=== PATIENT | female | born 1980 | race African-American/Black ===

== ENCOUNTER 2025-05-24 18:23 | Emergency (ER) | payer MEDICAID ==
[~2025-05-24] VITALS: Ht 167.6 cm; Wt 82.0 kg
[2025-05-24 18:51] VITALS: O2SAT 100
[2025-05-24] MEDS ORDERED: CYCL5TAB3 MT (19:31)
[2025-05-24 20:21] VITALS: TEMP 36.7; O2SAT 100
[2025-05-24] MEDS: LIDOCAINE 5% PATCH TOP SCH (20:23)
[2025-05-24 20:24] VITALS: BP 121/80; PULSE 74; RESP 16
[2025-05-24] MEDS: KETOROLAC 15MG/ML VIAL IM ONE (20:24)
[2025-05-24] MEDS: ACETAMINOPHEN 325MG TABLET PO ONE (20:26)
== END 2025-05-24 20:32 | disposition home or self-care (01) ==
LOC: ER 18:23
DX: M54.50 Low back pain, unspecified (principal); Z79.899 Other long term (current) drug therapy
CPT/HCPCS: 81025; 96372; 99283; J1885; Z7610